=== PATIENT | male | born 1980 | race Caucasian/White ===

== ENCOUNTER 2017-09-24 17:32 | Emergency (ER) | payer MEDICAID ==
[~2017-09-24] VITALS: Ht 175.3 cm; Wt 73.0 kg
[~2017-09-24 17:32] MED LIST: ADDE30XR PO; DIAZ10 PO; LAMI200T PO; PERC5TAB12 PO
[2017-09-24 17:34] VITALS: PULSE 96; RESP 16; TEMP 99; O2SAT 99
[2017-09-24] MEDS ORDERED: BACT800T5 PO (17:51)
--- NOTE | 2017-09-24 17:51 | PD ---
HPI Chief Complaint: Skin Problem Time Seen by Provider: 17:42 Travel History International Travel<30 days: No Contact w/Intl Traveler<30days: No Traveled to known affect area: No History of Present Illness HPI 36-year-old male presents emergency department for evaluation of a lesion to the left lower abdominal wall that has been present since Friday. Patient states that he had what he thought was a pimple, he popped it and over the last couple days the pain has worsened. Patient states that the area has become hard and more tender to the touch. He denies any fevers chills. Denies any abdominal pain except for the immediate area where the lesion is. Says he may been bit by a spider but is unsure as he was moving parts around in a warehouse. He denies any nausea vomiting or diarrhea. Patient does use tobacco products and said he smoked just prior to coming to the emergency department today. Denies chronic medical issues except for HTN. PFSH Past Medical History ADHD: Yes Bipolar Disorder: Yes Anxiety: Yes Cancer: No Cardiovascular Problems: No Diabetes: No Endocrine: No Genitourinary: No Hepatitis: No Hiatal Hernia: No Immune Disorder: No Musculoskeletal: Yes (left elbow, broken ribs, facial fractures, right clavicle ) Neurologic: No Psychiatric: No Reproductive: No Respiratory: No Thyroid Disease: No Past Surgical History Abdominal Surgery: No AICD: No Cardiac Surgery: No Ear Surgery: No Endocrine Surgery: No Eye Surgery: No Genitourinary Surgery: No Gynecologic Surgery: No Joint Replacement: No Oral Surgery: Yes (wisdom teeth) Pacemaker: No Thoracic Surgery: No Other Surgery: Yes Social History Alcohol Use: No Tobacco Use: Yes (1/2PPD) Substance Use: Yes (marijuana) Allergies-Medications (Allergen,Severity, Reaction): Coded Allergies: amoxicillin (Unverified Allergy, Intermediate, 09/24/17) Hives Reported Meds & Prescriptions Reported Meds & Active Scripts Active Keflex (Cephalexin) 500 Mg Cap 500 Mg PO Q8H 7 Days Bactrim DS (Sulfamethoxazole-Trimethoprim) 800-160 Mg Tab 1 Tab PO BID Reported Valium (Diazepam) 10 Mg Tab 10 Mg PO TID PRN Adderall Xr 24 HR (Amphetamine/Dextroamphetamine) 30 Mg Cap 30 Mg PO DAILY Once daily in the morning. Lamictal (Lamotrigine) 200 Mg Tab 200 Mg PO BID Review of Systems Except as stated in HPI: all other systems reviewed are Neg Physical Exam Narrative GENERAL: Well-nourished, well-developed patient. SKIN: Focused skin assessment warm/dry. left lower abd wall- area of fluctuance about 1-2cm, surrounding erythema of 2 cm outside of the lesion. Central ulceration scabbed. Fluid not expressed. HEAD: Normocephalic. EYES: No scleral icterus. No injection or drainage. NECK: Supple, trachea midline. No JVD or lymphadenopathy. CARDIOVASCULAR: Regular rate and rhythm without murmurs, gallops, or rubs. RESPIRATORY: Breath sounds equal bilaterally. No accessory muscle use. GASTROINTESTINAL: Abdomen soft, non-tender, nondistended. MUSCULOSKELETAL: No cyanosis, or edema. BACK: Nontender without obvious deformity. No CVA tenderness. Data Data Last Documented VS Vital Signs Date Time Temp Pulse Resp B/P (MAP) Pulse Ox O2 Delivery O2 Flow Rate FiO2 09/24/17 17:34 99.0 96 16 99 Orders Orders Tetanus/Diphtheria Tox Adult (Tetanus/Di (09/24/17 18:00) Sulfamet-Trimeth Ds 800-160 Mg (Bactrim (09/24/17 18:00) Cephalexin (Keflex) (09/24/17 18:00) Ed Discharge Order (09/24/17 18:11) Wound Care (09/24/17 18:11) MDM Medical Decision Making Medical Screen Exam Complete: Yes Emergency Medical Condition: Yes Differential Diagnosis Abdominal wall abscess, cellulitis, erysipelas Narrative Course 36-year-old male presents emergency department for evaluation of an abscess to left lower abdominal wall. There is no evidence of deep tissue infection except for some surrounding erythema. Vital signs are stable. Incision and drainage performed to the abdominal wall. Scant white fluid expressed with a bloody discharge. Wound culture obtained. Bactrim and Keflex administered in the emergency department today. Patient will have a outpatient prescription for these medications as well. Advised to keep the area clean and dry. Avoid the possibility of contamination. Advised to return to emergency department in 24-48 hours for wound check. Advised to return sooner for worsening or persistent symptoms or signs of infection. Procedures Procedure Narrative INCISION AND DRAINAGE OF ABSCESS: The area was prepped and was sterilely draped. A subcutaneous wheal of 2 % Xylocaine without epinephrine with a total number 0.5 mL was used to anesthetize the area properly. A number 11 scalpel was used to make a 7mm incision across the area of the abscess. The abscess was drained, complex loculations were broken down, and irrigated with normal saline. Cultures were obtained. Quarter inch iodoform packing was placed in the wound. Sterile dressing applied. Patient advised to have packing removed in two days. Diagnosis Primary Impression: Abscess Referrals: Primary Care Physician Additional Instructions: Follow up with your primary care physician within 2-3 days. Keep area clean and dry for 24 hours. After 24 hours, you may bathe as normal but dry the area thoroughly. You may use [id number] triple antibiotic ointments for your injury daily. Change dressings daily. If bleeding starts, apply pressure. If your primary care physician is unable to evaluate and treat her wound, return to the emergency department for wound evaluation and unpacking in 24-48 hours. If you developed increased redness, swelling, or pain return to the emergency department as this could be a sign of infection. Scripts Cephalexin (Keflex) 500 Mg Cap 500 MG PO Q8H for Infection for 7 Days, #21 CAP 0 Refills Prov: Caleb Travis MD 09/24/17 Sulfamethoxazole-Trimethoprim (Bactrim DS) 800-160 Mg Tab 1 TAB PO BID for Infection, #14 TAB 0 Refills Prov: Caleb Travis MD 09/24/17 Disposition: 01 DISCHARGE HOME Condition: Stable Carie Pope Sep 24, 2017 17:51
[2017-09-24] MEDS ORDERED: CEPH-460 PO (17:54)
[2017-09-24] MEDS ORDERED: SULFAMETHOXAZOLE-TRIMETHOPRIM DS 800-160 MG TAB PO ONE (18:00)
[2017-09-24] MEDS ORDERED: TETANUS/DIPHTHERIA TOXOID ADULT 0.5 ML VIAL IM ONE (18:00)
[2017-09-24] MEDS ORDERED: CEPHALEXIN MONOHYDRATE 500 MG CAP PO ONE (18:00)
== END 2017-09-24 18:27 | disposition home or self-care (01) ==
LOC: PHEFT 17:32
DX: L02.211 Cutaneous abscess of abdominal wall (principal); A49.02 Methicillin resistant Staphylococcus aureus infection, unspecified site; I10 Essential (primary) hypertension; F90.9 Attention-deficit hyperactivity disorder, unspecified type; F31.9 Bipolar disorder, unspecified; F41.9 Anxiety disorder, unspecified; F17.200 Nicotine dependence, unspecified, uncomplicated; Z79.899 Other long term (current) drug therapy; Z23 Encounter for immunization
CPT/HCPCS: 10060; 86403; 87070; 87186; 90471; 90714

== ENCOUNTER 2017-09-27 01:15 | Emergency (ER) | payer MEDICAID ==
[~2017-09-27] VITALS: Ht 175.3 cm; Wt 73.2 kg
[~2017-09-27 01:15] MED LIST changes: +BACT800T5 PO; +CEPH-460 PO; -PERC5TAB12 PO
[2017-09-27 01:22] VITALS: BP 144/81; PULSE 95; RESP 18; TEMP 97.1; O2SAT 99
[2017-09-27] MEDS ORDERED: ADDE30TA PO (02:00)
[2017-09-27] MEDS ORDERED: IBUPROFEN 800 MG TAB PO ONE (02:30)
--- NOTE | 2017-09-27 03:00 | PD ---
HPI Chief Complaint: Wound/Suture/Staple Re-Check Time Seen by Provider: 02:27 Travel History International Travel<30 days: No Contact w/Intl Traveler<30days: No Traveled to known affect area: No History of Present Illness HPI 36-year-old male presents to the emergency department for 2 day wound check after incision and drainage of an abscess 09/24/17. Patient states packing fell out soon after arriving home. Patient received a one-time dose of antibiotic in the emergency room prior to discharge and only filled his prescription for antibiotic this evening and took a dose of Bactrim and clindamycin prior to arrival to the emergency department. Patient states area of redness is markedly decreased but still has area of tenderness and induration. Patient denies any significant drainage small amount of drainage is noted at I&D site. No fever chills or worsening symptoms noted per patient. Patient rates pain 8/ 10 intensity with palpation of her indurated area. Patient denies other concerns or complaints. PFSH Past Medical History Narrative Medical ADHD bipolar disorder multiple orthopedic injury dental extraction; tobacco use marijuana use; nursing notes reviewed ADHD: Yes Bipolar Disorder: Yes Anxiety: Yes Cancer: No Cardiovascular Problems: No Diabetes: No Diminished Hearing: No Endocrine: No Genitourinary: No Hepatitis: No Hiatal Hernia: No Immune Disorder: No Musculoskeletal: Yes (left elbow, broken ribs, facial fractures, right clavicle , nose ) Neurologic: No Psychiatric: Yes (PTSD ) Reproductive: No Respiratory: No Thyroid Disease: No Tetanus Vaccination: < 5 Years Influenza Vaccination: No Past Surgical History Abdominal Surgery: No AICD: No Cardiac Surgery: No Ear Surgery: No Endocrine Surgery: No Eye Surgery: No Genitourinary Surgery: No Gynecologic Surgery: No Joint Replacement: No Oral Surgery: Yes (wisdom teeth) Pacemaker: No Thoracic Surgery: No Other Surgery: Yes Social History Alcohol Use: No Tobacco Use: Yes (1/2PPD) Substance Use: Yes (marijuana occ) Allergies-Medications (Allergen,Severity, Reaction): Coded Allergies: amoxicillin (Unverified Allergy, Intermediate, 09/27/17) Hives Reported Meds & Prescriptions Reported Meds & Active Scripts Active Keflex (Cephalexin) 500 Mg Cap 500 Mg PO Q8H 7 Days Bactrim DS (Sulfamethoxazole-Trimethoprim) 800-160 Mg Tab 1 Tab PO BID Reported Adderall (Amphetamine-Dextroamphetamine) 30 Mg Tab 30 Mg PO BID Avoid late evening doses. Space doses at least 4 to 6 hours if more than once/day dosing. Valium (Diazepam) 10 Mg Tab 10 Mg PO TID PRN Lamictal (Lamotrigine) 200 Mg Tab 200 Mg PO BID Review of Systems Except as stated in HPI: all other systems reviewed are Neg Physical Exam Narrative GENERAL: SKIN: Warm and dry. HEAD: Normocephalic. EYES: No scleral icterus. No injection or drainage. NECK: Supple, trachea midline. No JVD or lymphadenopathy. CARDIOVASCULAR: Regular rate and rhythm without murmurs, gallops, or rubs. RESPIRATORY: Breath sounds equal bilaterally. No accessory muscle use. GASTROINTESTINAL: Abdomen soft, non-tender, nondistended. Area of induration 5 cm x 4 cm without pointing or fluctuance scant amount of cloudy serous drainage from I&D site. Data Data Last Documented VS Vital Signs Date Time Temp Pulse Resp B/P (MAP) Pulse Ox O2 Delivery O2 Flow Rate FiO2 09/27/17 03:18 80 18 132/80 (97) 97 09/27/17 01:22 97.1 Orders Orders Ed Discharge Order (09/27/17 02:27) Ibuprofen (Motrin) (09/27/17 02:30) MDM Medical Decision Making Medical Screen Exam Complete: Yes Emergency Medical Condition: Yes Medical Record Reviewed: Yes Differential Diagnosis Recheck abscess status post I&D, cellulitis Narrative Course Patient noted to have decreased area of induration and inflammatory changes status post I&D of abscess to left anterior abdominal wall. No fever or chills. Area looks as if it is continuing to resolve. Patient encouraged to complete course of antibiotic as previously prescribed. Patient is a one-time dose of ibuprofen Diagnosis Primary Impression: Encounter for recheck of abscess following incision and drainage Referrals: Primary Care Physician call for appointment Patient Instructions: General Instructions Additional Instructions: Keep site clean and dry; apply liquid Dial soap to area sparingly Recommend wound check at 1-2 days in emergency department or with primary care provider; complete course of antibiotic as prescribed Take acetaminophen every 4 hours as needed for fever 100.4F or greater Take ibuprofen 600 mg as often as every 6 hours or 800 mg as often as every 8 hours for fever 100.4F or greater or for pain associated with inflammation Apply warm compresses to area as needed for comfort Return to the emergency department for any concerns or change in condition Disposition: 01 DISCHARGE HOME Condition: Stable Amaya Rojas MD Sep 27, 2017 03:00
[2017-09-27 03:18] VITALS: BP 132/80
== END 2017-09-27 03:33 | disposition home or self-care (01) ==
LOC: PHED 01:15
DX: Z48.817 Encounter for surgical aftercare following surgery on the skin and subcutaneous tissue (principal); F31.9 Bipolar disorder, unspecified; F43.10 Post-traumatic stress disorder, unspecified; F90.9 Attention-deficit hyperactivity disorder, unspecified type; F12.90 Cannabis use, unspecified, uncomplicated; F17.200 Nicotine dependence, unspecified, uncomplicated
CPT/HCPCS: 99282